=== PATIENT | male | born 1965 | race Caucasian/White ===

== ENCOUNTER 2017-10-19 09:42 | Emergency (ER) | payer MEDICAID, OTHER ==
[~2017-10-19] VITALS: Ht 162.6 cm; Wt 63.5 kg
[2017-10-19 14:00] VITALS: BP 148/89
== END 2017-10-19 14:42 | disposition home or self-care (01) ==
LOC: ER 09:42
DX: L25.9 Unspecified contact dermatitis, unspecified cause (principal)

== ENCOUNTER 2017-11-01 13:47 | Emergency (ER) | payer MEDICAID ==
[~2017-11-01] VITALS: Ht 165.1 cm; Wt 61.2 kg
[2017-11-01 14:13] VITALS: BP 147/84
[2017-11-01 14:55] LABS: Alcohol, Urine < 3.0 mg/dL (0-5); Amphetamine Screen, Urine POSITIVE (NEGATIVE); Barbiturate Scree,Urine NEGATIVE (NEGATIVE); Benzodiazephine Screen, Urine NEGATIVE (NEGATIVE); Cannabinoid Screen, Urine NEGATIVE (NEGATIVE); Cocaine Screen, Urine NEGATIVE (NEGATIVE); Opiate Scree,Urine NEGATIVE (NEGATIVE); Phencyclidine Screen, Urine NEGATIVE (NEGATIVE)
== END 2017-11-01 20:00 | disposition left against medical advice (07) ==
LOC: ER 13:47
DX: R23.8 Other skin changes (principal); Z53.21 Procedure and treatment not carried out due to patient leaving prior to being seen by health care provider
CPT/HCPCS: 80307

== ENCOUNTER 2017-12-11 03:39 | Emergency (ER) | payer SELFPAY ==
[~2017-12-11] VITALS: Ht 165.1 cm; Wt 63.5 kg
[2017-12-11 03:55] VITALS: BP 151/79
== END 2017-12-11 08:11 | disposition left against medical advice (07) ==
LOC: EDBD 03:39 → ER 03:42
DX: R06.02 Shortness of breath (principal); Z53.21 Procedure and treatment not carried out due to patient leaving prior to being seen by health care provider